=== PATIENT | male | born 1940 | race Caucasian/White ===

== ENCOUNTER → 2017-01-28 | Outpatient (CLI) | payer MEDICARE, OTHER ==
[2017-01-28 12:15] LABS: HCT - HEMATOCRIT 25.7 % (41-53); HGB - HEMOGLOBIN 8.1 GM/DL (13.5-17.5); MEAN CORPUSCULAR HGB 32.1 UUG (26-34); MEAN CORPUSCULAR HGB CONC(MCHC 31.5 GM/DL (31-37); MEAN PLATELET VOLUME 8.4 UM3 (9.4-12.4); RED BLOOD COUNT 2.52 M/MM3 (4.50-5.90)
[2017-01-28 12:28] LABS: BAND NEUTROPHILS # 0.3 T/MM3; EOSINOPHILS # (MANUAL) 0.4 T/MM3 (0-0.5); LYMPHOCYTES # (MANUAL) 7.8 T/MM3 (1-4.8); NEUTROPHILS #(MANUAL)-ABSOLUTE 2.3 T/MM3 (1.8-7.7); REACTIVE LYMPHOCYTES # 0.1 T/MM3 (0-0); TOTAL CELLS COUNTED 100 %
[2017-01-28 12:30] LABS: ANISOCYTOSIS 1+; HELMET CELLS 1+; OVALOCYTES 2+; POIKILOCYTOSIS 2+; TEAR DROP CELLS 2+
[2017-01-30 01:54] LABS: IRON 24 UG/DL (49-181)
[2017-01-30 02:00] LABS: IRON % SAT (TRANSF %SAT)(CALC) 13 % (13-59); TOTAL IRON BINDING CAPACITY 189 UG/DL (261-497)
[2017-01-30 02:35] LABS: FERRITIN 437 NG/ML (18-464)
[2017-01-30 03:05] LABS: FOLATE > 20.0 NG/ML (2.76-20); VITAMIN B12 - BATCH 582 PG/ML (239-931)
== END ==
LOC: LABN 12:06
PROVIDERS: ATTEND Internal Medicine Medical Oncology
DX: C91.10 Chronic lymphocytic leukemia of B-cell type not having achieved remission (principal)
CPT/HCPCS: 82607; 82728; 82746; 83010; 83540; 83550; 83615; 85025

== ENCOUNTER → 2017-02-09 | Outpatient (CLI) | payer MEDICARE, OTHER ==
[~2017-02-09] MED LIST: AMLO10TA2 PO; ATOR20TA59 PO; CYCL-375 PO; FINA5TAB42 PO; HYDR25TA PO; LISI40TA4 PO; METO100T5 PO; RIVA15TA PO; TRAM50TA4 PO
--- NOTE | 2017-02-09 10:54 | DI ---
Indication: ITS.REASON: C91.10, R53.83, N18.3, R06.02 PROCEDURE: US ABDOMEN COMPLETE: Encounter: Initial Comparison: None Technique: Grayscale and color Doppler sonographic imaging of the abdomen was performed. Findings: Hepatic parenchyma is homogeneous without evidence for focal mass. The gallbladder is normal. There is no wall thickening, pericholecystic fluid, sonographic Patle's sign or cholelithiasis. Both the intra and extrahepatic biliary system are of normal caliber with the common duct measuring 3 mm in dimension. Pancreas is not well seen. Both kidneys are present without collecting system dilatation. The right measures 10 cm in length and left measures 9.3 cm. Mild bilateral renal cortical thinning. The spleen is unremarkable, measuring 10.6 cm in length. The visualized portions of the aorta and IVC are unremarkable. There is extensive retroperitoneal adenopathy with markedly enlarged lymph nodes measuring up to 9 cm in diameter in the retroperitoneum. Impression: Extensive retroperitoneal adenopathy. .
--- NOTE | 2017-02-09 11:04 | DI ---
INDICATION: ITS.REASON: C91.10, R53.83, N18.3, R06.02 PROCEDURE: CHEST 2-VIEWS UPRIGHT (PA \T\ LAT) Encounter: Initial COMPARISON: None FINDINGS: Blunting of the left costophrenic angle could be due to pleural thickening or a small pleural effusion. The lung marroquin are otherwise clear. No thorax. Heart size is normal. There is a small rounded convex density above the aorta measuring about 1.5 cm in size that could represent a mediastinal lymph node. Mild degenerative change in the spine. IMPRESSION: 1. Left pleural thickening or small pleural effusion. 2. Possible left mediastinal adenopathy. .
== END ==
LOC: IMA 09:23
PROVIDERS: ATTEND Internal Medicine Medical Oncology
DX: C91.10 Chronic lymphocytic leukemia of B-cell type not having achieved remission (principal); R59.0 Localized enlarged lymph nodes; R91.8 Other nonspecific abnormal finding of lung field; D64.89 Other specified anemias; N18.3 Chronic kidney disease, stage 3 (moderate); R06.02 Shortness of breath; R53.83 Other fatigue
CPT/HCPCS: 36415; 86880

== ENCOUNTER 2017-02-14 14:49 | Emergency (ER) | payer MEDICARE, OTHER ==
[~2017-02-14] VITALS: Ht 177.8 cm; Wt 95.0 kg
[2017-02-14 14:51] VITALS: Ht 177.8 cm; Wt 95.0 kg
--- OUTSIDE RECORDS SUMMARY | 2017-02-14 14:53 | XMS REPORT | CCD ---
Author Author JENNIE BRODY Organization Unknown Address [address], [place] [id number] Phone 0 Care Team Providers Care Hooker Machine Tender Name Role Phone SUSY MAJOR Attending Physician 0 Vital Signs Unknown or Not Available. Allergies Allergy Code Allergy Type Reaction Status PCN (penicillin) 0 Drug allergy Active MORPHINE 7052 Drug allergy Active Procedures Procedure Code Procedure Type Date CHEST [id number] 09/10/2016 History of Immunizations Unknown or Not Available. Problems Unknown or Not Available. Results BASIC METABOLIC - Collect Date/Time: 09/10/2016 08:54 Test Name Code Test Result Test Units Test Ref Range GLUCOSE 119 mg/dL L=70 H=110 BUN 36 mg/dL L=7 H=18 CREATININE 2.26 mg/ dL L=0.60 H=1.30 AGE 76 YEARS GFR 28.2 SODIUM 140 mmol/L L=136 H=145 POTASSIUM 3.7 mmol/ L L=3.5 H=5.1 CHLORIDE 105 mmol/L L=98 H=107 CO2 24 mmol/L L=21 H=32 CALCIUM 9.0 mg/dL L=8.5 H=10.1 CBC W/ DIFF - Collect Date/Time: 09/10/2016 08:54 Test Name Code Test Result Test Units Test Ref Range WBC 25.7 x10^3 L=4.8 H=10.8 RBC 3.38 x10^6 L=4.70 H=6.10 HEMOGLOBIN 11.2 g/ dL L=14.0 H=18.0 HEMATOCRIT 32.3 % L=42.0 H=52.0 MCV 96 fL L=80 H=100 MCH 33.0 pg L=27.0 H=33.0 MCHC 34.5 g/dL L=33.0 H=37.0 RDW 16.6 % L=11.5 H=14.5 PLATELETS 171 x10^3 L=150 H=450 MPV 6.0 fL L=7.8 H=11.0 NEUTROPHILS 8.1 % L=40.0 H=80.0 LYMPHOCYTES 85.7 % L=20.0 H=45.0 MONOCYTES 3.3 % L=0.0 H=10.0 EOSINOPHILS 2.8 % L=0.0 H=5.0 BASOPHILS 0.1 % L=0.0 H=2.0 SEG 12 LC%% L=40 H=80 BAND 3 %% L=0 H=5 LYMPH 74 %% L=20 H=45 MONO 3 %% L=0 H=10 EOS 2 %% L=0 H=5 BASO 0 %% L=0 H=2 ATYP LYMPH 6 %% L=0 H=10 META 0 %% L=0 H=1 REFLEX MAN DIFF YES N/A RBC MORPHOLOGY SEE BELOW N/A ANISO SLIGHT N/A NORMAL: NONE SEEN POIK NONE SEEN N/A NORMAL: NONE SEEN HYPO NONE SEEN N/A NORMAL: NONE SEEN MICRO NONE SEEN N/A NORMAL: NONE SEEN MACRO NONE SEEN N/A NORMAL: NONE SEEN POLY NONE SEEN N/A NORMAL: NONE SEEN TOXIC GRAN NONE SEEN N/A NORMAL: NONE SEEN NUCLEATED RBC ONE N/ A NORMAL: NONE SEEN Active Medications Unknown or Not Available. Medications Administered During Visit Unknown or Not Available. Encounters Encounter Diagnosis Diagnosis Code Start Date Pallor R231 09/10/2016 Social History Smoking Status Code Start Date End Date Former smoker [id number] Patient Decision Aids Unknown or Not Available. Discharge Instructions You were admitted to [facility] on 09/10/2016 08:40 with a principal diagnosis of Pallor You had the following tests done: BASIC METABOLIC CBC W/ DIFF You were discharged from [facility] on 09/10/2016 08:40 Should you have any questions prior to discharge, please contact a member of your healthcare team. If you have left the hospital and have any questions, please contact your primary care physician. Chief Complaint and Reason For Visit Chief Complaint Date of Onset LAB XR CHEST Function Status Unknown or Not Available. Plan of Care Unknown or Not Available. Referral/Transition of Care Unknown or Not Available.
--- OUTSIDE RECORDS SUMMARY | 2017-02-14 14:53 | XMS REPORT | CCD ---
Author QUINTEN Prater Organization Unknown Address [address] [place] [phone] Phone 0 Care Team Providers Care Poultry Sexer Name Role Phone Jong CARDENAS Attending Physician 0 THERESA A Primary Surgeon 0 Vital Signs Vital Sign Value Unit Date/Time Recent/Initial? Weight Measured 218 lbs 12/09/2014 04:47 Initial VS Height 71 in 2014 04:47 Initial VS BMI (Body Mass Index) 30.4 kg/m^2 12/09/2014 04:47 Initial VS BSA (Body Surface Area) 2.23 m^2 12/09/2014 04:47 Initial VS Allergies Allergy Code Allergy Type Reaction Status PCN (penicillin) 0 Drug allergy Active MORPHINE 7052 Drug allergy Active Procedures Unknown or Not Available. History of Immunizations Unknown or Not Available. Problems Unknown or Not Available. Results Unknown or Not Available. Active Medications Unknown or Not Available. Medications Administered During Visit Unknown or Not Available. Encounters Unknown or Not Available. Social History Smoking Status Code Start Date End Date Unknown if ever smoked [id number] Patient Decision Aids Unknown or Not Available. Discharge Instructions You were admitted to [facility] on 12/09/2014. You were discharged from [facility] on 12/09/2014. Should you have any questions prior to discharge, please contact a member of your healthcare team. If you have left the hospital and have any questions, please contact your primary care physician. Chief Complaint and Reason For Visit Chief Complaint Date of Onset SORE THROAT 12/09/2014 SINUS CONGESTION 12/09/2014 CHEST TIGHTNESS 12/09/2014 Function Status Unknown or Not Available. Plan of Care Unknown or Not Available. Referral/Transition of Care Unknown or Not Available.
--- OUTSIDE RECORDS SUMMARY | 2017-02-14 14:53 | XMS REPORT | Continuity of Care Document ---
Author Author [facility] Organization [facility] Address Unknown Phone Unavailable Care Team Providers Care Special Events Director Name Role Phone Aaron Leone MD PP [phone] Insurance Providers Payer Name Policy Number Subscriber Name Relationship Slima [id number] Heather,Tomyedilberto 18 Self / Same As Patient Advance Directives Directive Response Recorded Date Advanced Directives No 07/24/13 4:46pm Type Durable Power of Sheet Rock Applicator 07/24/13 4 :46pm Problems Medical Problem Onset Date Cough 02/05/13 Near syncope 07/24/13 Vomiting 10/12/12 Acute upper respiratory infection 01/27/13 Allergies, Adverse Reactions, Alerts Allergen Type Severity Reaction Last Updated Penicillins Allergy 10/12/12 morphine Allergy 10/12/12 Medications Medication Dose Units Route Sig Qty Days Benzonatate 100 Mg PO TID PRN 20 Mometasone Furoate (Asmanex (Non-Formulary)) PRN Ondansetron Hcl (Zofran Oral Dissolve) 4 Mg PO Q4H PRN 10 Meclizine Hcl (Motion Sickness Ii) 25 Mg PO Cetirizine Hcl (All Day Allergy Relief) 10 Mg PO Tramadol Hcl (Ultram Er) 200 Mg PO TAKES 120MG Hydroxyzine Pamoate 50 Mg PO Finasteride 5 Mg PO Lisinopril 40 Mg PO DAILY Amlodipine Besylate 10 Mg PO 1/2 TAB DA Metoprolol Succinate 100 Mg PO DAILY Hydrochlorothiazide (Hctz) 25 Mg GT Q AM Response Recorded Date/Time Status not known Unknown Results No Known Relevant Diagnostic Tests, Laboratory Data and/or Discharge Summary. Encounters Encounter [facility] Date[facility]
--- OUTSIDE RECORDS SUMMARY | 2017-02-14 14:53 | XMS REPORT | CCD ---
Author Author QUINTEN CRUZ Organization Unknown Address [address] [place] [phone] Phone 0 Care Team Providers Care Clock And Watch Assembler Name Role Phone ALEXIA JOHNSON Attending Physician [phone] ALEXIA JOHNSON Primary Surgeon [phone] Vital Signs Vital Sign Value Unit Date/Time Recent/Initial? Weight Measured 227 lbs 03/10/2015 00:35 Initial VS Height 20.2 in 2014 00:35 Initial VS BMI (Body Mass Index) 91.13 kg/m^2 03/10/2015 00:35 Initial VS BSA (Body Surface Area) 1.21 m^2 03/10/2015 00:35 Initial VS Allergies Allergy Code Allergy Type Reaction Status PCN (penicillin) 0 Drug allergy Active MORPHINE 7052 Drug allergy Active Procedures Unknown or Not Available. History of Immunizations Unknown or Not Available. Problems Unknown or Not Available. Results COMP METABOLIC - Collect Date/Time: 03/10/2015 00:15 Test Name Code Test Result Test Units Test Ref Range GLUCOSE 139 mg/dL L=70 H=110 BUN 30 mg/dL L=7 H=18 CREATININE 1.80 mg/ dL L=0.60 H=1.30 AGE 74 YEARS GFR 39.2 SODIUM 140 mmol/L L=136 H=145 POTASSIUM 4.3 mmol/ L L=3.5 H=5.1 CHLORIDE 105 mmol/L L=98 H=107 CO2 29 mmol/L L=21 H=32 CALCIUM 9.5 mg/dL L=8.5 H=10.1 AST 16 U/L L=15 H=37 ALT 27 U/L L=12 H=78 ALKALINE PHOS 76 U/ L L=46 H=116 TOTAL PROTEIN 7.5 g/ dL L=6.4 H=8.2 ALBUMIN 3.9 g/dL L=3.4 H=5.0 TOTAL BILI 0.70 mg/ dL L=0.00 H=1.00 LIPASE - Collect Date/Time: 03/10/2015 00:15 Test Name Code Test Result Test Units Test Ref Range LIPASE 131 U/L L=73 H=393 CBC W/ DIFF - Collect Date/Time: 03/10/2015 00:15 Test Name Code Test Result Test Units Test Ref Range WBC 26.4 x10^3 L=4.8 H=10.8 RBC 4.70 x10^6 L=4.70 H=6.10 HEMOGLOBIN 15.0 g/ dL L=14.0 H=18.0 HEMATOCRIT 43.9 % L=42.0 H=52.0 MCV 93 fL L=80 H=100 MCH 32.0 pg L=27.0 H=33.0 MCHC 34.3 g/dL L=33.0 H=37.0 RDW 14.8 % L=11.5 H=14.5 PLATELETS 191 x10^3 L=150 H=450 MPV 6.3 fL L=7.8 H=11.0 NEUTROPHILS 21.2 % L=40.0 H=80.0 LYMPHOCYTES 74.1 % L=20.0 H=45.0 MONOCYTES 3.7 % L=0.0 H=10.0 EOSINOPHILS 0.8 % L=0.0 H=5.0 BASOPHILS 0.2 % L=0.0 H=2.0 SEG 23 %% L=40 H=80 BAND 8 %% L=0 H=5 LYMPH 53 %% L=20 H=45 MONO 4 %% L=0 H=10 EOS 0 %% L=0 H=5 BASO 1 %% L=0 H=2 ATYP LYMPH 11 %% L=0 H=10 META 0 %% L=0 H=1 REFLEX MAN DIFF YES N/A RBC MORPHOLOGY NORMAL N/A INFLUENZA A + B, RAPID - Collect Date/Time: 03/10/2015 00:35 Test Name Code Test Result Test Units Test Ref Range INFLUENZA A NEGATIVE N/A NORMAL: NEGATIVE INFLUENZA B NEGATIVE N/A NORMAL: NEGATIVE Active Medications Unknown or Not Available. Medications Administered During Visit Unknown or Not Available. Encounters Unknown or Not Available. Social History Smoking Status Code Start Date End Date Unknown if ever smoked [id number] Patient Decision Aids Unknown or Not Available. Discharge Instructions You were admitted to [facility] on 03/09/2015. You were discharged from [facility] on 03/10/2015. Should you have any questions prior to discharge, please contact a member of your healthcare team. If you have left the hospital and have any questions, please contact your primary care physician. Chief Complaint and Reason For Visit Chief Complaint Date of Onset Nausea with vomiting 03/09/2015 Function Status Unknown or Not Available. Plan of Care Unknown or Not Available. Referral/Transition of Care Unknown or Not Available.
--- OUTSIDE RECORDS SUMMARY | 2017-02-14 14:53 | XMS REPORT | CCD ---
Author QUINTEN Prater Organization Unknown Address [address] [place], [place] [phone] Phone 0 Care Team Providers Care Records And Information Manager Name Role Phone THERESA, Jong Attending Physician 0 THERESA, A Primary Surgeon 0 Vital Signs Unknown or Not Available. Allergies Allergy Code Allergy Type Reaction Status PCN (penicillin) 0 Drug allergy Active MORPHINE 7052 Drug allergy Active Procedures Unknown or Not Available. History of Immunizations Unknown or Not Available. Problems Unknown or Not Available. Results Unknown or Not Available. Medications Unknown or Not Available. Medications Administered Unknown or Not Available. Encounters Unknown or Not Available. Social History Smoking Status Code Start Date End Date Unknown if ever smoked [id number] Patient Decision Aids Unknown or Not Available. Discharge Instructions You were admitted to [facility] on 07/21/2014. You were discharged from [facility] on 07/21/2014. Should you have any questions prior to discharge, please contact a member of your healthcare team. If you have left the hospital and have any questions, please contact your primary care physician. Chief Complaint and Reason For Visit Chief Complaint Date of Onset DIZZINESS Function Status Unknown or Not Available. Plan of Care Unknown or Not Available. Referral/Transition of Care Unknown or Not Available.
--- OUTSIDE RECORDS SUMMARY | 2017-02-14 14:53 | XMS REPORT | CCD ---
Author Author DAT ROE Organization Unknown Address [address] [place], [place] [phone] Phone 0 Care Team Providers Care Substance Addiction Coordinator Name Role Phone Fitz RYAN Attending Physician 0 SUSY MAJOR Primary Surgeon 0 Vital Signs Unknown. Allergies Allergy Code Allergy Type Reaction Status MORPHINE 0 Drug allergy (disorder) Active PCN (penicillin) 0 Drug allergy (disorder ) Active Procedures Unknown. History of Immunizations Unknown. Problems Unknown. Results UA AUTO W/ MICRO Test Name Code Test Result Test Units Test Date/Time COLOR Yellow N/A 12/14/2013 12:45 APPEARANCE Clear N/ A 12/14/2013 12:45 GLUCOSE Negative N/ A 12/14/2013 12:45 BILIRUBIN Negative N /A 12/14/2013 12:45 KETONE Negative N/A 12/14/2013 12:45 SPEC GRAVITY 1.020 N /A 12/14/2013 12:45 BLOOD Negative N/A 12/14/2013 12:45 PROTEIN Negative N/ A 12/14/2013 12:45 PH 5.5 N/A 12/14/2013 12:45 UROBILINOGEN 0.2 N/ A 12/14/2013 12:45 NITRITE Negative N/ A 12/14/2013 12:45 LEUKOCYTES Negative N/A 12/14/2013 12:45 MICRO RBC None Seen N/A 12/14/2013 12:45 MICRO WBC 0-2 N/A 12/14/2013 12:45 BACTERIA Trace N/A 12/14/2013 12:45 EPI CELLS None Seen N/A 12/14/2013 12:45 MUCUS Small N/A 12/14/2013 12:45 AMORPHOUS Trace N/A 12/14/2013 12:45 YEAST None Seen N/A 12/14/2013 12:45 CRYSTALS None Seen N /A 12/14/2013 12:45 CAST None Seen N/A 12/14/2013 12:45 URINE CULTURE? NO N/ A 12/14/2013 12:45 Medications Medication Code Dose Units Frequency Route Modification Start Date/Time Stop Date/ Time Tramadol 50MG Oral Tablet 251914 50 MILLIGRAMS ORAL Meclizine 25MG Oral Tablet 366439 25 MILLIGRAMS THREE TIMES DAILY ORAL Amlodipine 10MG Oral Tablet 062027 10 MILLIGRAMS ORAL Cetirizine 10MG Oral Tablet 0706862 10 MILLIGRAMS DAILY ORAL Hydrochlorothiazide 25MG Oral Tablet 853432 25 MILLIGRAMS DAILY ORAL Multi Vitamins Oral Tablet 294620 1 EACH DAILY ORAL Lisinopril 40MG Oral Tablet 773363 40 MILLIGRAMS DAILY ORAL Asmanex Twist 0.22MG/Actuation Inhalation Powder 641325 1 EACH TWICE A DAY INHALATION Aspirin 81MG Oral Tablet 144050 81 MILLIGRAMS DAILY ORAL Metoprolol Succinate 100MG Oral Tablet, Extended Release 376128 100 MILLIGRAMS TWICE A DAY ORAL Medications Administered Unknown. Encounters Unknown. Social History Smoking Status Code Start Date End Date Unknown if ever smoked [id number] Patient Decision Aids Unknown. Instructions You were admitted to [facility] on 12/14/2013. You had the following tests done: COLOR APPEARANCE GLUCOSE BILIRUBIN KETONE SPEC GRAVITY BLOOD PROTEIN PH UROBILINOGEN NITRITE LEUKOCYTES MICRO RBC MICRO WBC BACTERIA EPI CELLS MUCUS AMORPHOUS YEAST CRYSTALS CAST URINE CULTURE? You were discharged from [facility] on 12/14/2013. Should you have any questions prior to discharge, please contact a member of your healthcare team. If you have left the hospital and have any questions, please contact your primary care physician. Chief Complaint and Reason For Visit Chief Complaint Date of Onset LOW BACK/LEG PAIN Function Status Unknown. Plan of Care Unknown. Referral/Transition of Care Unknown.
--- OUTSIDE RECORDS SUMMARY | 2017-02-14 14:53 | XMS REPORT | CCD ---
Author Author DAT ROE Organization Unknown Address [address] [place], [place] [id number] Phone 0 Care Team Providers Care County Surveyor Name Role Phone ISIS MARCOS Attending Physician [phone] Vital Signs Unknown. Allergies Allergy Code Allergy Type Reaction Status PCN (penicillin) 0 Drug allergy (disorder ) Active MORPHINE 0 Drug allergy (disorder) Active Procedures Unknown. History of Immunizations Unknown. Problems Unknown. Results Unknown. Medications Unknown. Medications Administered Unknown. Encounters Unknown. Social History Smoking Status Code Start Date End Date Unknown if ever smoked [id number] Patient Decision Aids Unknown. Instructions You were admitted to [facility] on 12/21/2013. Should you have any questions prior to discharge, please contact a member of your healthcare team. If you have left the hospital and have any questions, please contact your primary care physician. Chief Complaint and Reason For Visit Chief Complaint Date of Onset RECURRING PHT Function Status Unknown. Plan of Care Unknown. Referral/Transition of Care Unknown.
--- OUTSIDE RECORDS SUMMARY | 2017-02-14 14:53 | XMS REPORT | CCD ---
Author Author JENNIE BRODY Organization Unknown Address [address] [place] [phone] Phone 0 Care Team Providers Care Derrick Hand Name Role Phone SUSY MAJOR Attending Physician 0 SUSY MAJOR Primary Surgeon 0 Vital Signs Vital Sign Value Unit Date/Time Recent/Initial? Weight Measured 224.21 lbs 12/04/2015 14:50 Initial VS Height 60.5 in 2015 14:50 Initial VS BMI (Body Mass Index) 43.07 kg/m^2 12/04/2015 14:50 Initial VS BSA (Body Surface Area) 2.08 m^2 12/04/2015 14:50 Initial VS Allergies Allergy Code Allergy Type Reaction Status PCN (penicillin) 0 Drug allergy Active MORPHINE 7052 Drug allergy Active Procedures Unknown or Not Available. History of Immunizations Unknown or Not Available. Problems Unknown or Not Available. Results COMP METABOLIC - Collect Date/Time: 12/04/2015 15:15 Test Name Code Test Result Test Units Test Ref Range GLUCOSE 105 mg/dL L=70 H=110 BUN 25 mg/dL L=7 H=18 CREATININE 1.60 mg/ dL L=0.60 H=1.30 AGE 75 YEARS GFR 44.8 SODIUM 141 mmol/L L=136 H=145 POTASSIUM 3.8 mmol/ L L=3.5 H=5.1 CHLORIDE 103 mmol/L L=98 H=107 CO2 28 mmol/L L=21 H=32 CALCIUM 9.5 mg/dL L=8.5 H=10.1 AST 21 U/L L=15 H=37 ALT 30 U/L L=12 H=78 ALKALINE PHOS 79 U/ L L=46 H=116 TOTAL PROTEIN 7.1 g/ dL L=6.4 H=8.2 ALBUMIN 3.7 g/dL L=3.4 H=5.0 TOTAL BILI 0.70 mg/ dL L=0.00 H=1.00 CBC W/ DIFF - Collect Date/Time: 12/04/2015 15:15 Test Name Code Test Result Test Units Test Ref Range WBC 32.1 x10^3 L=4.8 H=10.8 RBC 4.31 x10^6 L=4.70 H=6.10 HEMOGLOBIN 13.9 g/ dL L=14.0 H=18.0 HEMATOCRIT 42.2 % L=42.0 H=52.0 MCV 98 fL L=80 H=100 MCH 32.3 pg L=27.0 H=33.0 MCHC 33.0 g/dL L=33.0 H=37.0 RDW 14.9 % L=11.5 H=14.5 PLATELETS 151 x10^3 L=150 H=450 MPV 6.3 fL L=7.8 H=11.0 NEUTROPHILS 10.9 % L=40.0 H=80.0 LYMPHOCYTES 82.6 % L=20.0 H=45.0 MONOCYTES 4.2 % L=0.0 H=10.0 EOSINOPHILS 1.9 % L=0.0 H=5.0 BASOPHILS 0.4 % L=0.0 H=2.0 SEG 8 LC%% L=40 H=80 BAND 1 %% L=0 H=5 LYMPH 80 HC%% L=20 H=45 MONO 9 %% L=0 H=10 EOS 0 %% L=0 H=5 BASO 0 %% L=0 H=2 ATYP LYMPH 0 %% L=0 H=10 META 0 %% L=0 H=1 REFLEX MAN DIFF YES N/A RBC MORPHOLOGY NORMAL N/A UA AUTO W/ MICRO - Collect Date/Time: 12/04/2015 15:30 Test Name Code Test Result Test Units Test Ref Range COLOR Yellow N/A NORMAL: Yellow APPEARANCE Clear N/ A NORMAL: Clear GLUCOSE Negative N/ A NORMAL: Negative BILIRUBIN Negative N /A NORMAL: Negative KETONE Negative N/A NORMAL: Negative SPEC GRAVITY 1.010 N /A NORMAL: 1.005-1.030 BLOOD Negative N/A NORMAL: Negative PROTEIN Negative N/ A NORMAL: Negative PH 5.5 N/A NORMAL: 5.0-8.0 UROBILINOGEN 0.2 N/ A NORMAL: Negative NITRITE Negative N/ A NORMAL: Negative LEUKOCYTES Negative N/A NORMAL: Negative MICRO RBC 0-2 N/A NORMAL: 0-2 MICRO WBC 0-2 N/A NORMAL: 0-2 BACTERIA None Seen N /A NORMAL: None-Trace EPI CELLS None Seen N/A NORMAL: 0-15 MUCUS None Seen N/A NORMAL: None-Small AMORPHOUS None Seen N/A NORMAL: None Seen YEAST None Seen N/A NORMAL: None Seen CRYSTALS None Seen N /A NORMAL: None Seen CAST None Seen N/A NORMAL: None Seen URINE CULTURE? NO N/ A Active Medications Unknown or Not Available. Medications Administered During Visit Unknown or Not Available. Encounters Encounter Diagnosis Diagnosis Code Start Date Viral intestinal infection, unspecified A084 12/04/2015 Social History Smoking Status Code Start Date End Date Former smoker [id number] Patient Decision Aids Unknown or Not Available. Discharge Instructions You were admitted to [facility] on 12/04/2015 with a principal diagnosis of Viral intestinal infection, unspecified. You were discharged from [facility] on 12/04/2015. Should you have any questions prior to discharge, please contact a member of your healthcare team. If you have left the hospital and have any questions, please contact your primary care physician. Chief Complaint and Reason For Visit Chief Complaint Date of Onset N/V; CLUTCHING CHEST; DIARRHEA Function Status Unknown or Not Available. Plan of Care Unknown or Not Available. Referral/Transition of Care Unknown or Not Available.
--- OUTSIDE RECORDS SUMMARY | 2017-02-14 14:53 | XMS REPORT | CCD ---
Author Author JENNIE BRODY Organization Unknown Address [address] [place], [place] [phone] Phone 0 Care Team Providers Care Plasma Center Technician Name Role Phone Jong FUENTES Attending Physician 0 Vital Signs Unknown or Not Available. Allergies Allergy Code Allergy Type Reaction Status PCN (penicillin) 0 Drug allergy Active MORPHINE 7052 Drug allergy Active Procedures Procedure Code Procedure Type Date CHEST [id number] 08/28/2016 History of Immunizations Unknown or Not Available. Problems Unknown or Not Available. Results Unknown or Not Available. Active Medications Unknown or Not Available. Medications Administered During Visit Unknown or Not Available. Encounters Encounter Diagnosis Diagnosis Code Start Date Cough R05 08/28/2016 Social History Smoking Status Code Start Date End Date Former smoker [id number] Patient Decision Aids Unknown or Not Available. Discharge Instructions You were admitted to [facility] on 08/28/2016 15:19 with a principal diagnosis of Cough You were discharged from [facility] on 08/28/2016 15:19 Should you have any questions prior to discharge, please contact a member of your healthcare team. If you have left the hospital and have any questions, please contact your primary care physician. Chief Complaint and Reason For Visit Chief Complaint Date of Onset XR CHEST Function Status Unknown or Not Available. Plan of Care Unknown or Not Available. Referral/Transition of Care Unknown or Not Available.
--- OUTSIDE RECORDS SUMMARY | 2017-02-14 14:53 | XMS REPORT | Continuity of Care Document ---
Author Author [facility] Organization [facility] Address Unknown Phone Unavailable Care Team Providers Care Backup Engineer Name Role Phone Aaron Leone MD PP [phone] Insurance Providers Payer Name Policy Number Subscriber Name Relationship [employer] [id number] Gregor Romero 16 Self / Same As Patient Advance Directives Directive Response Recorded Date Advanced Directives No 10/13/13 10:39am Type Durable Power of Tire Specialist 10/13/13 10:39am Problems Medical Problem Onset Date Cough 02/05/13 Near syncope 07/24/13 Productive cough 10/13/13 Vomiting 10/12/12 Acute upper respiratory infection 01/27/13 Allergies, Adverse Reactions, Alerts Allergen Type Severity Reaction Last Updated Penicillins Allergy 10/12/12 morphine Allergy 10/12/12 Medications Medication Dose Units Route Sig Qty Days Azithromycin (Zithromax Z-Rj) 250 Mg PO SEE INSTRUCTIONS 6 Benzonatate 100 Mg PO TID PRN 20 [...] Diagnostic Tests, Laboratory Data and/or Discharge Summary. Procedures Procedure Code Date COMPREHEN METABOLIC PANEL 21002 07/24/13 ASSAY OF TROPONIN QUANT 64665 07/24/13 COMPLETE CBC W/AUTO DIFF WBC 82583 ROUTINE VENIPUNCTURE 02099 07/24/13 URINALYSIS AUTO W/O SCOPE 94797 07/24/13 EMERGENCY DEPT VISIT 71053 07/24/13 ELECTROCARDIOGRAM TRACING 13475 07/24/13 ELECTROCARDIOGRAM TRACING 53402 07/24/13 J7030 07/24/13 X-RAY EXAM OF ANKLE 82179 07/29/13 X-RAY EXAM KNEE 4 OR MORE 02164 07/29/13 X-RAY EXAM L-S SPINE 2/3 VWS 63047 Blood Culture 10/13/13 Encounters Encounter Location Date/Time Departed Emergency Room [facility] 10/13/13 10:31am
--- OUTSIDE RECORDS SUMMARY | 2017-02-14 14:53 | XMS REPORT | Continuity of Care Document ---
Author Author [facility] Organization [facility] Address Unknown Phone Unavailable Care Team Providers Care Deputy Probation Officer Name Role Phone Aaron Leone MD PP [phone] Insurance Providers Payer Name Policy Number Subscriber Name Relationship [employer] [id number] Gregor Romero 16 Self / Same As Patient Advance Directives Directive Response Recorded Date Advanced Directives No 10/13/13 10:39am Type Durable Power of Newspaper Or Periodical Editor 10/13/13 10:39am Problems Medical Problem Onset Date [...] Procedures Procedure Code Date COMPREHEN METABOLIC PANEL 29981 07/24/13 ASSAY OF TROPONIN QUANT 94995 07/24/13 COMPLETE CBC W/AUTO DIFF WBC 03810 ROUTINE VENIPUNCTURE 98773 07/24/13 URINALYSIS AUTO W/O SCOPE 25955 07/24/13 EMERGENCY DEPT VISIT 92373 07/24/13 ELECTROCARDIOGRAM TRACING 49359 07/24/13 ELECTROCARDIOGRAM TRACING 70233 07/24/13 J7030 07/24/13 X-RAY EXAM OF ANKLE 35836 07/29/13 X-RAY EXAM KNEE 4 OR MORE 22593 07/29/13 X-RAY EXAM L-S SPINE 2/3 VWS 95255 COMPREHEN METABOLIC PANEL 24732 10/13/13 COMPLETE CBC W/AUTO DIFF WBC 25572 INFLUENZA A/B AG EIA 71247 10/13/13 ROUTINE VENIPUNCTURE 89319 10/13/13 BLOOD CULTURE FOR BACTERIA 64368 CHEST X-RAY 2VW FRONTAL&LATL 50873 EMERGENCY DEPT VISIT 98084 10/13/13 CT LUMBAR SPINE W/O DYE 79330 10/20/13 Encounters Encounter Location Date/Time Departed Emergency Room [facility] 10/13/13 10:31am
--- OUTSIDE RECORDS SUMMARY | 2017-02-14 14:53 | XMS REPORT | Continuity of Care Document ---
Author Author [facility] Address Unknown Phone Unavailable Allergies Active Description Code Type Severity Reaction Onset Reported/Identified Relationship to Patient Clinical Status Yes morphine [id number] Drug Allergy Unknown N/A 10/12/2012 Yes Penicillins [id number] Drug Allergy Unknown N/A 10/12/2012 Medications Problems Date Dx Coded Attending Type Code Diagnosis Diagnosed By 11/21/2013 Vasu LEMONS, Aaron Paul Ot 558.9 NONINF GASTROENTERIT NEC 11/21/2013 Aaron Leone MD Ot 719.40 JOINT PAIN-UNSPEC 11/21/2013 Aaron Leone MD Ot 724.8 OTHER BACK SYMPTOMS 11/21/2013 Aaron Leone MD Ot 780.52 INSOMNIA, UNSPECIFIED Procedures Results Encounters ACCT No. Visit Date/Time Discharge Status Pt. Type Provider Facility Loc./Unit Complaint [id number] 09/20/2013 10:00:00 2013 00:01:00 DIS Outpatient Vasu LEMONS, Aaron Paul [facility] PT [id number] 10/20/2013 12:45:00 2012 23:59:59 CLS Outpatient [id number] 10/13/2013 10:31:00 2012 13:30:00 DIS Emergency [id number] 09/12/2013 09:59:00 2012 23:59:59 CLS Outpatient [id number] 07/29/2013 10:05:00 2012 23:59:59 CLS Outpatient [id number] 07/24/2013 16:45:00 2012 18:50:00 DIS Emergency
--- OUTSIDE RECORDS SUMMARY | 2017-02-14 14:53 | XMS REPORT | CCD ---
Author Author QUINTEN CRUZ Organization Unknown Address [address] [place] [address] [phone] Phone 0 Care Team Providers Care Scarrer Name Role Phone WALT BARNHART Attending Physician 0 WALT BARNHART Primary Surgeon 0 Vital Signs Vital Sign Value Unit Date/Time Recent/Initial? Weight Measured 216.3 lbs 12/08/2014 12:56 Initial VS Height 70 in 2014 12:56 Initial VS BMI (Body Mass Index) 31.04 kg/m^2 12/08/2014 12:56 Initial VS BSA (Body Surface Area) 2.2 m^2 12/08/2014 12:56 Initial VS Allergies Allergy Code Allergy Type [...] Date End Date Unknown if ever smoked [id number] Patient Decision Aids Unknown or Not Available. Discharge Instructions You were admitted to [facility] on 12/08/2014. You were discharged from [facility] on 12/08/2014. Should you have any questions prior to discharge, please contact a member of your healthcare team. If you have left the hospital and have any questions, please contact your primary care physician. Chief Complaint and Reason For Visit Chief Complaint Date of Onset Fall Function Status Unknown or Not Available. Plan of Care Unknown or Not Available. Referral/Transition of Care Unknown or Not Available.
--- OUTSIDE RECORDS SUMMARY | 2017-02-14 14:53 | XMS REPORT | CCD ---
Author Author DAT ROE Organization Unknown Address [address], [place] [id number] Phone 0 Care Team Providers Care Swimming Pool Plasterer Helper Name Role Phone JOHN PEREZ Attending Physician [phone] JOHN PEREZ Primary Surgeon [phone] Vital Signs Unknown. Allergies Allergy Code Allergy Type Reaction Status MORPHINE 0 Drug allergy (disorder) Active PCN (penicillin) 0 Drug allergy (disorder ) Active Procedures Unknown. History of Immunizations Unknown. Problems Unknown. Results Unknown. Medications Medication Code Dose Units Frequency Route Modification Start Date/Time Stop Date/ Time Tramadol 50MG Oral Tablet 713737 50 MILLIGRAMS ORAL Medications Administered Unknown. Encounters Unknown. Social History Smoking Status Code Start Date End Date Unknown if ever smoked [id number] Patient Decision Aids Unknown. Instructions You were admitted to [facility] on 12/12/2013. Should you have any questions prior to discharge, please contact a member of your healthcare team. If you have left the hospital and have any questions, please contact your primary care physician. Chief Complaint and Reason For Visit Chief Complaint Date of Onset PAIN DOWN LEGS Function Status Unknown. Plan of Care Unknown. Referral/Transition of Care Unknown.
--- OUTSIDE RECORDS SUMMARY | 2017-02-14 14:53 | XMS REPORT | CCD ---
Author Author JENNIE BRODY Organization Unknown Address [address] [place] [phone] Phone 0 Care Team Providers Care Piping Supervisor Name Role Phone Jong CARDENAS Attending Physician 0 THERESA, A Primary Surgeon 0 Vital Signs Vital Sign Value Unit Date/Time Recent/Initial? Weight Measured 221 lbs 12/08/2015 22:30 Initial VS Height 70 in 2015 22:30 Initial VS BMI (Body Mass Index) 31.71 kg/m^2 12/08/2015 22:30 Initial VS BSA (Body Surface Area) 2.23 m^2 12/08/2015 22:30 Initial VS Allergies Allergy Code Allergy Type Reaction Status PCN (penicillin) 0 Drug allergy Active MORPHINE 7052 Drug allergy Active Procedures Unknown or Not Available. History of Immunizations Unknown or Not Available. Problems Unknown or Not Available. Results Unknown or Not Available. Active Medications Unknown or Not Available. Medications Administered During Visit Unknown or Not Available. Encounters Encounter Diagnosis Diagnosis Code Start Date Syncope and collapse R55 12/08/2015 Social History Smoking Status Code Start Date End Date Former smoker [id number] Patient Decision Aids Unknown or Not Available. Discharge Instructions You were admitted to [facility] on 12/08/2015 with a principal diagnosis of Syncope and collapse. You were discharged from [facility] on 12/08/2015. Should you have any questions prior to discharge, please contact a member of your healthcare team. If you have left the hospital and have any questions, please contact your primary care physician. Chief Complaint and Reason For Visit Chief Complaint Date of Onset FALL Function Status Unknown or Not Available. Plan of Care Unknown or Not Available. Referral/Transition of Care Unknown or Not Available.
--- NOTE | 2017-02-14 15:03 | ERPDOC ---
Departure Disposition Decision Date: Feb 14, 2017 Disposition Decision Time: 16:30 Disposition: 01 DISCHARGED HOME, SELF-CARE Impression Impression Impression: Primary Impression: Deep vein thrombosis (DVT) of right lower extremity Affected thrombotic vein of extremity: popliteal Chronicity: acute Qualified Codes: I82.431 - Acute embolism and thrombosis of right popliteal vein Additional Impression: Right femoral vein DVT Chronicity: acute Qualified Codes: I82.411 - Acute embolism and thrombosis of right femoral vein Severity: Moderate Condition: Stable Seen By: Physician only Referrals: KENNY BRO "GOKUL" (Family) Check in with Dr. Bro on Thursday to find out what he wants you to do as the next step Patient Instructions: Deep Venous Thrombosis (ED) Problems/Meds/Labs Reviewed?: Yes Medications reviewed and manag: Yes Additional Instructions: You were given a shot of Lovenox today which should cover you until you can take Xarelto tomorrow. If you cannot start Xarelto tomorrow, please call the emergency department tomorrow afternoon, and I will arrange for another outpatient injection. You need to be on anticoagulation longer than the 3 weeks I am prescribing, he will need to follow-up with Dr. Bro 2 discussed risks and benefits and final medication Follow up care ordered?: Yes Mental Status: Alert, Oriented Scripts Rivaroxaban (Xarelto) 15 Mg Tablet 15 MG PO BIDWM for 21 Days, #42 TAB Take 1 tablet, by mouth, 2 times a day with meals. Prov: KATELYNN CLEMENT MD 02/14/17 HPI - Lower Extremity General Chief Complaint: Lower Extremity Pain Stated Complaint: PAIN R LEG Time Seen by Provider: 15:03 Source: patient, family Exam Limitations: no limitations HPI - Lower Extremity Initial Comments Patient is a 76-year-old male, presents emergency room for evaluation of right lower extremity swelling. Patient does have chronic lymphedema the swelling in that leg waxing and wanes, however for the last 3 months is getting significantly worse. Patient did see his primary medical doctor on Thursday, however no testing was done, they did suggest an ultrasound however the person who does ultrasounds was not present. They were told if the swelling got worse to present to the emergency department. They did present to the emergency department in [place] today with significant increase in swelling in the left lower extremity, they do not have the ability to get an ultrasound today they did check basic laboratories CBC was significant for a hemoglobin of 8.2, otherwise noncontributory, d-dimer was greater than 5000. Patient was referred to [facility] for evaluation. On arrival patient states the pain is no worse than usual, does have chronic weakness that might be a little bit worse he feels is due secondary to the weight of the leg. Patient has no chest pain no shortness of breath no palpitations Occurred At: home Onset/Timing: Gradual, Getting worse Duration: other Pain/Injury Location: right leg Allergies: Coded Allergies: Penicillins (Verified Allergy, Unknown, HIVES, 02/14/17) morphine (Verified Allergy, Unknown, HIVES, 02/14/17) Past History Past Medical History Cardiac: CAD, IA Hematologic: other (CLL) Social History Smoking Status: Never smoker Substance Use Type: does not use Alcohol Intake: none Review of Systems Constitutional Constitutional: weakness (nonspecific), DENIES: chills, dizziness, fever ENMT Sinuses: DENIES: congestion Cardiovascular Cardiac: DENIES: chest pain, dyspnea on exertion Pulmonary Respiratory: DENIES: cough, dyspnea, sputum, tachypnea GI Upper Abdomen: DENIES: nausea, pain, vomiting Lower Abdomen: DENIES: constipation, diarrhea, pain General: DENIES: frequency, urgency Musculoskeletal General: DENIES: cramps, pain, weakness Integumentary Skin: see HPI Endocrine Endocrine: DENIES: heat/cold intolerance Hematologic/Lymphatic Hematologic/Lymphatic: DENIES: anemia Physical Exam General General Nourishment: well nourished, well developed, no acute distress General Body Habitus: well groomed Vitals and Pain First Documented Vital Signs Date Time Temp Pulse Resp B/P Pulse Ox O2 Delivery O2 Flow Rate FiO2 02/14/17 14:51 98.2 64 16 108/53 97 Room Air Weight: Kilograms: Height (feet): Height (inches): Triage Pain Scale: Eyes (brief) Eyes Brief: found: EOMI ENMT (brief) ENMT Brief: FOUND: mucosa moist, normal dentition, NOT FOUND: nasal erythema, pharnyx erythema, tonsillar deviation Neck (brief) Neck: NOT FOUND: adenopathy, spasm, tenderness Respiratory (brief) Respiratory: FOUND: clear all marroquin, equal bilaterally, NOT FOUND: rales, wheezes Cardiovascular (brief) Cardiac: FOUND: pedal edema (patient has 3+ pitting edema in the right lower extremity 1+ edema in the left lower extremity), regular rate, regular rhythm Capillary Refill: <2 sec Abdomen (brief) Abdominal Brief: FOUND: bowel normo active x4, soft, NOT FOUND: distended, tender Lymphatic (brief) Lymphatic Brief: NOT FOUND: adenopathy Musculoskeletal (brief) Musculoskeletal Brief: NOT FOUND: spasm, tenderness Neurologic (brief) Neurological Brief: FOUND: motor-no gross deficits, sensory-no gross deficits Psychiatric (brief) Psychiatric Brief: FOUND: alert, oriented Differential Diagnoses Considering: DVT, Other (lymphedema, CHF, venous insufficiency, superficial thrombophlebitis) Progress Results/Orders Orders Procedure Category Date Status Time Orthostatic Bp/Pulse EDM 02/14/17 Transmitted 15:19 Us Venous Duplex, US 02/14/17 Taken Lower Ext Rt 15:19 Enoxaparin (Lovenox) PHA 02/14/17 Complete 16:30 Medications Current ED Medications Enoxaparin Sodium (Lovenox) 130 mg O ONCE SQ Last administered on 02/14/17t 16: 35; Start 02/14/17 at 16:30; Stop 02/14/17 at 16:31; Status DC Progress Progress Patient has DVT in right lower extremity discussed risks and benefits of anticoagulation with patient patient's family at this time we'll give patient 1.5 mg/kg of Lovenox start Xarelto 15 mg twice a day tomorrow morning. Patient is to follow-up with primary medical physician on Thursday for discussion of continued Xarelto versus other medication Ultrasound US : Ultrasound: Venous Doppler Interpretation: Abnormal, Faxed Report (superficial femoral and popliteal DVT) KATELYNN CLEMENT MD Feb 14, 2017 15:03
--- NOTE | 2017-02-14 15:05 | NUR ---
ADDITIONAL INFORMATION PT STATES THAT HE HAS BEEN LIMPING WITH REGARD TO R LEG PAIN AND R LEG SWELLING. PT STATES THIS HAS BEEN PRESENT X3 MONTHS. PT REPORTS THAT HE HAS BEEN DOING PHYSICAL THERAPY FOR THIS CONCERN.
--- NOTE | 2017-02-14 15:07 | NUR ---
DR DR CLEMENT AT BEDSIDE.
--- OUTSIDE RECORDS SUMMARY | 2017-02-14 15:09 | XMS REPORT | Continuity of Care Document ---
Author Author [facility] Address Unknown Phone Unavailable Allergies Active Description Code Type Severity Reaction Onset Reported/Identified Relationship to Patient Clinical Status Yes morphine [id number] Drug Allergy Unknown N/A 10/12/2012 Yes Penicillins [id number] Drug Allergy Unknown N/A 10/12/2012 Medications Problems [...] Status Pt. Type Provider Facility Loc./Unit Complaint [id number] 09/20/2013 10:00:00 2013 00:01:00 DIS Outpatient Vasu LEMONS, Aaron Paul [facility] PT [id number] 10/20/2013 12:45:00 2012 23:59:59 CLS Outpatient [id number] 10/13/2013 10:31:00 2012 13:30:00 DIS Emergency [id number] 09/12/2013 09:59:00 2012 23:59:59 CLS Outpatient [id number] 07/29/2013 10:05:00 2012 23:59:59 CLS Outpatient [id number] 07/24/2013 16:45:00 2012 18:50:00 DIS Emergency
--- NOTE | 2017-02-14 15:29 | NUR ---
ORTHOSTATIC VS REPORTED TO DR CLEMENT.
--- NOTE | 2017-02-14 15:30 | NUR ---
JERED GOODSON, SONO TECH AT BEDSIDE.
[2017-02-14] MEDS ORDERED: LISI40TA4 PO (16:22)
[2017-02-14] MEDS ORDERED: ATOR20TA59 PO (16:22)
[2017-02-14] MEDS ORDERED: CYCL-375 PO (16:22)
[2017-02-14] MEDS ORDERED: METO100T5 PO (16:22)
[2017-02-14] MEDS ORDERED: AMLO10TA2 PO (16:22)
[2017-02-14] MEDS ORDERED: FINA5TAB42 PO (16:22)
[2017-02-14] MEDS ORDERED: TRAM50TA4 PO (16:22)
[2017-02-14] MEDS ORDERED: HYDR25TA PO (16:22)
--- NOTE | 2017-02-14 16:22 | NUR ---
DR DR CLEMENT AT BEDSIDE.
[2017-02-14] MEDS ORDERED: ENOXAPARIN 150 MG/ML INJECTION SQ ONE (16:30)
[2017-02-14] MEDS ORDERED: RIVA15TA PO (16:34)
[2017-02-14 16:49] VITALS: BP 134/56; PULSE 58; RESP 16; TEMP 98.8; O2SAT 100
--- NOTE | 2017-02-14 16:49 | NUR ---
DEPART PT WHEELED TO PRIVATE CAR BY THIS RN. ACCOMPANIES.
--- NOTE | 2017-02-15 09:09 | DI ---
Indication: ITS.REASON: RLE Swelling PROCEDURE: US VENOUS DUPLEX, LOWER EXT RT: Encounter: Initial Comparison: None Technique: Color Doppler duplex and grayscale sonographic imaging of the right lower extremity was performed. Findings: Multifocal deep venous thrombosis is seen within the superficial femoral vein proximally through the distal aspect of the popliteal. This is occlusive in the superficial femoral vein for the most part becoming nonocclusive more distally. Posterior tibial and common femoral veins are patent and compressible. Impression: Extensive DVT. There is a preliminary report by virtual radi[facility]. .
== END 2017-02-14 16:49 | disposition home or self-care (01) ==
LOC: ED 14:49
DX: I82.431 Acute embolism and thrombosis of right popliteal vein (principal); I82.411 Acute embolism and thrombosis of right femoral vein
CPT/HCPCS: 93971; 96372; 99284; J1650

== ENCOUNTER → 2017-03-24 | Outpatient (CLI) | payer MEDICARE, OTHER ==
[2017-03-24 08:55] LABS: HCT - HEMATOCRIT 27.1 % (41-53); HGB - HEMOGLOBIN 8.6 GM/DL (13.5-17.5); MEAN CORPUSCULAR HGB 31.3 UUG (26-34); MEAN CORPUSCULAR HGB CONC(MCHC 31.7 GM/DL (31-37); MEAN CORPUSCULAR VOLUME 98.5 UM3 (80-100); RED BLOOD COUNT 2.75 M/MM3 (4.50-5.90); WBC - WHITE BLOOD COUNT 10.8 T/MM3 (4.5-11.0)
[2017-03-24 09:03] LABS: ALBUMIN/GLOBULIN RATIO 1.7 RATIO (1.1-2.2); ALKALINE PHOSPHATASE 60 U/L (38-126); ALT (SGPT) 28 U/L (21-72); ANION GAP 13 MEQ/L (5-15); AST (SGOT) 13 U/L (17-59); BUN/CREATININE RATIO 14 RATIO (6-26); CHLORIDE 102 MEQ/L (98-107); CO2 - CARBON DIOXIDE 26 MEQ/L (22-30); CREATININE 1.8 MG/DL (0.8-1.5); GLOMERULAR FILTRATION RATE 37; GLUCOSE 111 MG/DL (75-110); LDH 397 U/L (313-618); POTASSIUM 4.4 MEQ/L (3.6-5); SODIUM 141 MEQ/L (134-144); TOTAL PROTEIN 6.3 G/DL (6.3-8.2); URIC ACID 9.5 MG/DL (3.5-8.5)
[2017-03-24 09:30] LABS: BAND NEUTROPHILS # 0.2 T/MM3; EOSINOPHILS # (MANUAL) 0.6 T/MM3 (0-0.5); LYMPHOCYTES # (MANUAL) 5.6 T/MM3 (1-4.8); METAMYELOCYTES # 0.6 T/MM3; MONOCYTES # (MANUAL) 0.1 T/MM3 (0-0.8); NEUTROPHILS #(MANUAL)-ABSOLUTE 3.1 T/MM3 (1.8-7.7); PLASMA CELLS # 0.2 T/MM3; REACTIVE LYMPHOCYTES # 0.2 T/MM3 (0-0)
[2017-03-24 09:32] LABS: ANISOCYTOSIS 2+; POIKILOCYTOSIS 2+; TEAR DROP CELLS 1+
[2017-03-24 09:33] LABS: OVALOCYTES 2+
[2017-03-24 09:34] LABS: MICROCYTOSIS 1+; SMUDGE CELLS 1+
== END ==
LOC: LAB 08:19
PROVIDERS: ATTEND Internal Medicine Medical Oncology
DX: C91.10 Chronic lymphocytic leukemia of B-cell type not having achieved remission (principal)
CPT/HCPCS: 36415; 80053; 83615; 84550; 85025; 88184; 88185

== ENCOUNTER → 2017-04-07 | Outpatient (CLI) | payer MEDICARE, OTHER ==
[2017-04-07 10:14] LABS: BASOPHILS % (AUTO) 0.1 % (0-2); EOSINOPHILS % (AUTO) 0.3 % (0-4); HCT - HEMATOCRIT 30.9 % (41-53); HGB - HEMOGLOBIN 9.9 GM/DL (13.5-17.5); IMMATURE GRANULOCYTE # (AUTO) 0.02 T/MM3 (0.00-0.03); IMMATURE GRANULOCYTE % (AUTO) 0.2 % (0.0-0.5); LYMPHOCYTES # (AUTO) 7.3 T/MM3 (1-4.8); LYMPHOCYTES % (AUTO) 79.1 % (23-45); MEAN CORPUSCULAR HGB 31.3 UUG (26-34); MEAN CORPUSCULAR VOLUME 97.8 UM3 (80-100); MEAN PLATELET VOLUME 8.9 UM3 (9.4-12.4); MONOCYTES # (AUTO) 0.2 T/MM3 (0-0.8); MONOCYTES % (AUTO) 2.6 % (0-9.0); NEUTROPHILS #(AUTO)-ABSOLUTE 1.6 T/MM3 (1.8-7.7); NEUTROPHILS % (AUTO) 17.7 % (33-66); RED BLOOD COUNT 3.16 M/MM3 (4.50-5.90); WBC - WHITE BLOOD COUNT 9.3 T/MM3 (4.5-11.0)
[2017-04-07 10:27] LABS: ANION GAP 13 MEQ/L (5-15); BUN/CREATININE RATIO 13 RATIO (6-26); CALCIUM 10.1 MG/DL (8.4-10.2); CHLORIDE 98 MEQ/L (98-107); CO2 - CARBON DIOXIDE 28 MEQ/L (22-30); CREATININE 1.6 MG/DL (0.8-1.5); GLOMERULAR FILTRATION RATE 42; GLUCOSE 115 MG/DL (75-110); LDH 427 U/L (313-618); POTASSIUM 4.4 MEQ/L (3.6-5); SODIUM 139 MEQ/L (134-144); URIC ACID 8.1 MG/DL (3.5-8.5)
== END ==
LOC: LAB 09:45
PROVIDERS: ATTEND Internal Medicine Medical Oncology
DX: C91.10 Chronic lymphocytic leukemia of B-cell type not having achieved remission (principal)
CPT/HCPCS: 36415; 80048; 83615; 84550; 85025; 86704; 86705; 86706; 87340